=== PATIENT | female | born 1970 | race Caucasian/White ===

== ENCOUNTER → 2021-09-30 11:44 | Outpatient (CLI) | payer MEDICAID, SELFPAY | PROVIDERS: Visit Provider Obstetrics & Gynecology | DX: N76.0 Acute vaginitis (principal) ==

== ENCOUNTER 2021-12-11 11:13 | Outpatient (CLI) | payer MEDICAID, SELFPAY ==
[2021-12-11 11:47] LABS: Erythrocyte Sedimentation Rate < 1 mm/hr (0-30)
[2021-12-11 11:49] LABS: Absolute Lymphocyte Count 1.34 X10^3/uL (0.83-4.51); Absolute Neutrophil Count 4.9 X10^3/uL (2.0-7.7); Basophil# 0.04 X10^3/uL; Basophil% 0.5 % (0-1); Eosinophil# 0.43 X10^3/uL; Eosinophils% 5.9 % (0-5); Hematocrit 39.9 % (37-47); Hemoglobin 14.1 g/dL (12.0-15.0); Lymphocyte # 1.34 X10^3/ul (0.83-4.51); Lymphocyte % 18.3 % (19-41); Mean Corp Hgb Conc 35.3 g/dL (32-36); Mean Corpuscular Hgb 30.8 pg (27.0-32.0); Mean Corpuscular Volume 87.1 fL (81-99); Mean Platelet Vol. 10.4 fl (6.2-12.0); Monocyte# 0.62 X10^3/uL; Monocyte% 8.4 % (0-10); NRBC Flagged by Analyzer 0 % (0-5); Neutrophil # 4.88 X10^3/uL (2.7-7.7); Neutrophil % 66.5 % (47-70); Platelet Count 239 K/mm3 (150-450); RBC Distribution Width CV 13.2 % (11.6-14.6); RBC Distribution Width SD 41.6 fl (35.1-43.9); Red Blood Count 4.58 M/mm3 (4.2-5.4); White Blood Count 7.3 K/mm3 (4.4-11.0)
[2021-12-11 12:13] LABS: ALB/GLOB Ratio 1.1 RATIO (0.9-2.4); AST(SGOT) 11 U/L (15-37); Alanine Aminotransfer ALT/SGPT 19 U/L (13-56); Albumin, Serum 3.5 g/dL (3.2-5.0); Alkaline Phosphatase 71 U/L (45-117); Anion Gap 3 (5-15); BUN 10 mg/dL (7-18); BUN/Creat Ratio 15.7 RATIO (10-20); Calcium,Total 8.5 mg/dL (8.5-10.1); Chloride 106 mmol/L (98-107); Creatinine, Serum 0.64 mg/dL (0.55-1.02); EST Glomerular Filtration Rate 106 mL/min (>60); Est Glom Filt Rate - Afr Amer 128 mL/min (>60); Globulin 3.3 g/dL (2.2-4.2); Glucose 79 mg/dL (74-106); LDH 166 U/L (84-246); Protein, Total 6.8 g/dL (6.4-8.2); Sodium Level 139 mmol/L (136-145)
[2021-12-17 16:10] LABS: Cytoplasmic Ab (C-ANCA) <1:20 titer (Neg:<1:20); Endomysial Antibody IgA Negative (Negative); Immunoglobulin A 149 mg/dL (87-352); Immunoglobulin E 45 IU/mL (6-495); Immunoglobulin G 878 mg/dL (586-1602)
[2021-12-17 17:41] LABS: Immunoglobulin M 63 mg/dL (26-217); Perinuclear Ab (P-ANCA) <1:20 titer (Neg:<1:20); t-Transglutaminase IgA <2 U/mL (0-3)
== END 2021-12-11 23:59 | disposition home or self-care (01) ==
PROVIDERS: PCP Family Medicine; Referring Provider Internal Medicine Gastroenterology; Visit Provider Internal Medicine Gastroenterology
DX: R10.9 Unspecified abdominal pain (principal)
CPT/HCPCS: 36415; 80053; 82784; 82785; 83516; 83615; 85025; 85652; 86140; 86255; 86256

== ENCOUNTER 2022-01-15 09:17 | Outpatient (CLI) | payer MEDICAID, SELFPAY ==
--- NOTE | 2022-01-15 09:20 | US_ITS ---
STUDY: ABDOMINAL ULTRASOUND - RIGHT UPPER QUADRANT REASON FOR VISIT: Female, 51 years old right upper quadrant pain, fever TECHNIQUE: Ultrasound evaluation of the right upper quadrant was performed with real-time and static milner-scale imaging. TECHNICAL QUALITY: Adequate. COMPARISON: None. FINDINGS: Liver: The liver measures 16.4 cm. There is normal echogenicity of the liver. The bile ducts are within normal limits. There is hepatic color flow. The direction of portal flow is hepatopetal. There is no demonstrated mass lesion. Gallbladder: The patient is status post cholecystectomy. Common Bile Duct (C.B.D.): The common bile duct measures 5 mm. Pancreas: Normal size of the head, body and tail of the pancreas. There is normal echogenicity of the pancreas. There is no demonstrated pancreatic mass or cyst. Right Kidney: Normal size of the right kidney. The right kidney measures 10.1 x 4.8 x 4.1 cm. Normal renal cortex. The right cortex measures 1.5 cm. There is no demonstrated renal mass or cyst. There is no right hydronephrosis. US/Abdomen Limited IMPRESSION: No suspicious sonographic findings Electronically Signed: Vance Vasquez MD at 16:51 EDT ,
--- NOTE | 2022-01-15 09:20 | RAD_ITS ---
STUDY: X-RAY - ABDOMEN/PELVIS REASON FOR EXAM: Female, 51 years old. abdominal pain TECHNIQUE: Two AP supine views of the abdomen and pelvis. COMPARISON: None. FINDINGS: Normal visualized lung bases. There is an unremarkable bowel gas pattern. There is no demonstrated free abdominal air. The visualized liver, spleen and kidneys are grossly normal in size and morphology. Normal soft tissue structures. Normal visualized osseous structures. Evidence of previous tubal ligation RAD/Abdomen Single View IMPRESSION: No acute findings Electronically Signed: Vance Vasquez MD at 10:31 EDT ,
== END 2022-01-15 23:59 | disposition home or self-care (01) ==
PROVIDERS: PCP Family Medicine; Referring Provider Internal Medicine Gastroenterology; Visit Provider Internal Medicine Gastroenterology
DX: R10.9 Unspecified abdominal pain (principal)
CPT/HCPCS: 74018; 76705

== ENCOUNTER 2022-02-03 08:31 | Day surgery (SDC) | payer MEDICAID, SELFPAY ==
[2022-02-03] VITALS (7 sets, daily range): BP systolic 103–140; BP diastolic 48–67; PULSE 62–92; RESP 16–18; TEMP 36.2–36.7; O2SAT 93–100; BMI 37.4
--- NOTE | 2022-02-03 | GASB_PTH ---
PATIENT: LOVE SY LOC: EN U#:[id number] AGE/SX: 51/F ROOM: RE02/03/[address]: Dr. Ean Villa DO : 1970 BED: DIS: 02/03/2022 SPEC #: [id number] RECD: 02/03/22 12:02 STATUS: MANJULA CELI #: [id number] CHARI: 02/03/22 00:[address]: Ean Villa DEPT: SURGICAL PATHOLOGY RECD BY: Tan Reyes ENTERED: 02/03/22 12:03 SP TYPE: Gastric Bx OTHR DR: Dr. Navid Keating DO Tissues: A - Gastric mucous membrane B - Esophageal mucous membrane C - Ileum, NOS D - Cecum, NOS E - Rectum, NOS Procedures: Special Stain Group II Surgery Specimen Level IV Alcian Blue/PAS (control) HEADER OPERATION: Colonoscopy, EGD (MAC), biopsy PRE-OP DIAGNOSIS: Abdominal pain TISSUE SUBMITTED: A - Gastric antrum biopsy, B - Distal esophagus biopsy, C - Terminal ileum biopsy, D - Cecum biopsy, E - Rectum biopsy MICROSCOPIC DIAGNOSIS A. Gastric antrum, biopsy: Mild gastritis. See microscopic description and comment. B. Distal esophagus, biopsy: Fragments of gastroesophageal mucosa with intestinal metaplasia (goblet cell metaplasia) consistent with Yanez?s esophagus. Chronic inflammation. Negative for dysplasia. See comment. C. Terminal ileum, biopsy: Fragments of small intestinal mucosa, no pathologic diagnosis. D. Cecum, biopsy: Fragments of colonic mucosa, no pathologic diagnosis. E. Rectum, biopsy: A fragment of colonic mucosa, no pathologic diagnosis. SJ:rg 02/04/2022 COMMENT A. The results of immunohistochemistry for Helicobacter pylori will be reported separately ([id number]). B. Immunohistochemistry ([id number]) for P53 and Ki-67 will be performed and results will be reported separately. Alcian blue/PAS stain with matched control is used in the evaluation of the specimen. MICROSCOPIC DESCRIPTION Slides are reviewed. A. The specimen shows fragments of gastric mucosa with chronic inflammatory cell infiltrates in the lamina propria consisting of lymphocytes and plasma cells, consistent with mild chronic gastritis. GROSS DESCRIPTION A - Received in fixative is one container labeled with the patient's name and designated gastric antrum. The specimen consists of two irregular fragments of light hoover soft tissue that in aggregate measure 1 x 0.5 x 0.1 cm. The specimen is totally submitted in one cassette. B - Received in fixative is one container labeled with the patient's name and designated distal esophagus biopsy. The specimen consists of multiple irregular fragments of light hoover soft tissue that in aggregate measure 1 x 0.6 x 0.1 cm. The specimen is totally submitted in one cassette. C - Received in fixative is one container labeled with the patient's name and designated terminal ileum biopsy. The specimen consists of two irregular fragments of light hooevr soft tissue that in aggregate measure 0.6 x 0.3 x 0.1 cm. The specimen is totally submitted in one cassette. D - Received in fixative is one container labeled with the patient's name and designated cecum biopsy. The specimen consists of multiple irregular fragments of light hoover soft tissue that in aggregate measure 0.5 x 0.5 x 0.1 cm. The specimen is totally submitted in one cassette. E - Received in fixative is one container labeled with the patient's name and designated rectum. The specimen consists of one irregular fragment of light hoover soft tissue that measures 0.5 x 0.2 x 0.1 cm. The specimen is totally submitted in one cassette. / AM:cristina 02/03/2022 TC:3 CPT: 66433 x5, 59794
[2022-02-03] MEDS: Lactated Ringers 1,000 ML 15 ML IV (09:22)
--- NOTE | 2022-02-03 10:00 | IMM_PTH ---
PATIENT: LOVE SY LOC: EN U#:[id number] AGE/SX: 51/F ROOM: RE02/03/[address]: Dr. Ean Villa DO : 1970 BED: DIS: 02/03/2022 SPEC #: [id number] RECD: 02/03/22 13:07 STATUS: MANJULA REMike #: [id number] CHARI: 02/03/22 10:[address]: Ena Villa DEPT: IMMUNOHISTOCHEMISTRY RECD BY: Joaquina Jesus ENTERED: 02/03/22 13:07 SP TYPE: IMMUNO OTHR DR: Dr. Navid Keating DO Tissues: A - Stomach, NOS B - Esophagus, NOS Procedures: H Pylori (initial) P53 (initial) KI-67 (add) PHYSICIAN & INSTITUTION [facility] [id number] SPECIMEN INFORMATION: Tissue Source: A ? Gastric antrum biopsy, B ? Distal esophagus biopsy Clinical Info: Abdominal pain Specimen Number: [id number] A & B CPT code: 69770 x2, 50804 METHODOLOGY: Deparaffinized sections of prefer/formalin-fixed tissue or PAP/DQ stained slides are incubated with monoclonal/polyclonal antibodies/oligonucleotide probes. Localization is made via biotin free immunoperoxidase method. Appropriate controls are performed and reacted as expected. Results on target cell population are indicated in the following table: RESULTS: ANTIBODY / CLONE RESULT Block A H Pylori (polyclonal) negative Block B P53 (DO-7) negative Ki-67 (30-9) positive, very low These tests were developed and their performance characteristics determined by [facility]. They may not have been cleared or approved by the U.S. Food and Drug Administration. The FDA has determined that such clearance or approval is not necessary. The above immunohistochemical/dualISH markers are ordered and reviewed by the Pathologist. INTERPRETATION: A. Gastric antrum, biopsy: Negative for Helicobacter pylori organisms. B. Distal esophagus, biopsy: Negative for hyperplasia. SJ:cristina 02/05/2022
--- NOTE | 2022-02-03 10:25 | HP.PCM_ITS ---
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 For the last several months, saw computer forensics technician who performed an ultrasound and felt it was related to GI symptoms. Started antibiotic and pains continue. Reports difficulty with constipation alternating urgent diarrhea for the last couple of months. Reports blood she feels is related to hemorrhoids and an abnormal white discharge. History of migraine headaches that cause nausea and emesis, reports at one point she had difficulty with emesis becoming brown. Surgical history includes cholecystectomy 2003. Family history of Crohn?s disease, pancreatitis. ROS Const Constitutional: No anorexia, fatigue, fever(s), weight change or sleep problems Eyes Eyes: No change in vision ENT ENT: No abnormal hearing, difficulty swallowing, mouth lesions, tongue swelling or throat swelling Resp Respiratory: No cough or shortness of breath Cardio Cardiology: No chest pain at rest, chest pain with exertion, shortness of breath or dyspnea on exertion Gastro GI: No difficulty swallowing Genitourinary-Female: No difficulty urinating or burning urination Musc Musculoskeletal: No joint pain, joint swelling, muscle weakness or decreased muscle mass Skin Skin: No hair loss in leg, yellowing of the eye, itchy eyes, rash, skin ulcer or skin swelling Neuro Neurology: No abnormal hearing, abnormal movements, confusion, unsteady gait/balance or memory loss Psych Psychiatric: No anxiety, No confusion and No memory loss Endo Endocrine: No fatigue or weight change Aller/Imm Allergy/Immunologic: No itchy eyes, throat swelling or tongue swelling Maco/Lymp Hematologic/Lymphatic: No easy bleeding, easy bruising or enlarged lymph nodes Exam Const General: cooperative and comfortable Nutritional Appearance: average body habitus and well nourished [facility] Head: normal to inspection Ears: hearing grossly normal bilaterally Nose: external nose normal Face and sinus: normal facial exam Mouth: oral mucosae normal Throat: posterior oropharynx normal Eyes General: appearance normal, both eyes and all related structures Neck Neck: normal visual inspection Chest Chest palpation & inspection: normal inspection of the chest and normal palpation of entire chest wall Resp Effort & Inspection: normal respiratory effort Auscultation: Bilateral: Clear to Auscultation Cardio Palpation: normal PMI Rate: regular rate Rhythm: regular rhythm GI Inspection: normal to inspection Auscultation: normal bowel sounds Percussion: normal to percussion Palpation: no hepatosplenomegaly Skin General: no rashes or lesions noted Neuro General: patient alert Extrem General: normal to inspection Psych Affect: normal affect Quality Reporting Tobacco Screening ([facility] 138) Smoking Status: Former smoker Assessment and Plan Assessment and Plan (1) Abdominal pain: Status: Acute Orders: Orders: Abdomen/Pelvis WITH Contrast 12/11/21 Comprehensive Metabolic Profil 12/11/21 CRP 12/11/21 LDH 12/11/21 CBC W/Diff, Automated 12/11/21 Erythrocyte Sed Rate 12/11/21 ANCA 12/11/21 Celiac Disease Profile 12/11/21 Immunoglobulin E 12/11/21 Immunoglobulin G 12/11/21 Immunoglobulin M 12/11/21 Plan - Dr. Mckoy Friend, DO: Differential diagnosis for abdominal pain does include IBS with constipation, intestinal angina, peptic ulcer disease, sigmoid colitis associated with diverticulosis. She will undergo an upper and lower endoscopy and also a biochemical work-up. Prior to that she will undergo CT scan abdomen pelvis. This was over 35 minutes explaining the possible differential diagnosis that she was okay with the plan. I have re-examined the patient. There are no clinical changes since date of exam.
--- NOTE | 2022-02-03 11:23 | OP.EGD_ITS ---
Patient Name: Anette Ruvalcaba Procedure Date: 02/03/2022 10:33 AM Date of : 1970 Age: 51 Procedure: Upper GI endoscopy Indications: Epigastric abdominal pain Providers: Ean Villa DO Medicines: See the Anesthesia note for documentation of the administered medications Patient Profile: This is a 51 year old female. Refer to note in patient chart for documentation of history and physical. Patient has symptoms of acute epigastric abdominal pain and chronic nausea. Complications: No immediate complications. Procedure: Pre-Anesthesia Assessment: - Prior to the procedure, a History and Physical was performed, and patient medications and allergies were reviewed. The patient is competent. The risks and benefits of the procedure and the sedation options and risks were discussed with the patient. All questions were answered and informed consent was obtained. Patient identification and proposed procedure were verified by the physician in the pre-procedure area. Mental Status Examination: alert and oriented. Airway Examination: normal oropharyngeal airway and neck mobility. Respiratory Examination: clear to auscultation. CV Examination: normal. Prophylactic Antibiotics: The patient does not require prophylactic antibiotics. Prior Anticoagulants: The patient has taken no previous anticoagulant or antiplatelet agents. ASA Grade Assessment: II - A patient with mild systemic disease. After reviewing the risks and benefits, the patient was deemed in satisfactory condition to undergo the procedure. The anesthesia plan was to use moderate sedation / analgesia (conscious sedation). Immediately prior to administration of medications, the patient was re-assessed for adequacy to receive sedatives. The heart rate, respiratory rate, oxygen saturations, blood pressure, adequacy of pulmonary ventilation, and response to care were monitored throughout the procedure. The physical status of the patient was re-assessed after the procedure. After obtaining informed consent, the endoscope was passed under direct vision. Throughout the procedure, the patient's blood pressure, pulse, and oxygen saturations were monitored continuously. The pediatric colonoscope was introduced through the mouth, and advanced to the second part of duodenum. The upper GI endoscopy was accomplished without difficulty. The patient tolerated the procedure well. Moderate Sedation: Moderate (conscious) sedation was administered by the endoscopy nurse and supervised by the endoscopist. The patient's oxygen saturation, heart rate, blood pressure and response to care were monitored. Total physician intraservice time was 15 minutes. Scope In: 10:48:00 AM Scope Out: 10:53:33 AM Total Procedure Duration Time 0 hours 5 minutes 33 seconds Findings: LA Grade B (one or more mucosal breaks greater than 5 mm, not extending between the tops of two mucosal folds) esophagitis with no bleeding was found 37 to 40 cm from the incisors. Biopsies were taken with a cold forceps for histology. Verification of patient identification for the specimen was done. Estimated blood loss was minimal. A medium-sized hiatal hernia was present. Patchy mildly erythematous mucosa without bleeding was found in the stomach. The first portion of the duodenum was normal. Impression: - LA Grade B reflux esophagitis. Biopsied. - Medium-sized hiatal hernia. - Erythematous mucosa in the stomach. - Normal first portion of the duodenum. Recommendation: - Discharge patient to home. - Resume previous diet. - Continue present medications. - Use Protonix (pantoprazole) 40 mg PO BID for 8 weeks. -Cholestyramine 4 g nightly Procedure Code(s): --- Professional --- 64928, Esophagogastroduodenoscopy, flexible, transoral; with biopsy, single or multiple 58905, 59, Moderate sedation services provided by the same physician or other qualified health customer care coordinator performing the diagnostic or therapeutic service that the sedation supports, requiring the presence of an independent trained observer to assist in the monitoring of the patient's level of consciousness and physiological status; initial 15 minutes of intraservice time, patient age 5 years or older CPT copyright 2017 [employer]. All rights reserved. The codes documented in this report are preliminary and upon medical biller/coder review may be revised to meet current compliance requirements. Ean Villa DO 02/03/2022 11:23:19 AM This report has been signed electronically. Number of Addenda: 1 Note Initiated On: 02/03/2022 10:33 AM Addendum Number: 1 Addendum Date: 07/29/2022 6:47:12 AM MAC was used as sedation for this procedure. Ean Villa DO 07/29/2022 6:47:17 AM This report has been signed electronically.
--- NOTE | 2022-02-03 11:24 | OP.CCLET_ITS ---
07/29/2022 Navid Keating Do Re : Upper GI endoscopy procedure for Anette Ruvalcaba Dear Dr. Keating This procedure was performed on Thursday, February 03, 2022. My impressions and recommendations are as follows: Impressions : - LA Grade B reflux esophagitis. Biopsied. - Medium-sized hiatal hernia. - Erythematous mucosa in the stomach. - Normal first portion of the duodenum. Recommendations : - Discharge patient to home. - Resume previous diet. - Continue present medications. - Use Protonix (pantoprazole) 40 mg PO BID for 8 weeks. -Cholestyramine 4 g nightly My findings are described in the full procedure note, which is enclosed. If I can be of further assistance, please feel free to contact me at . Sincerely, Ean Friend, 02/03/2022 11:23:19 AM This report has been signed electronically.
--- NOTE | 2022-02-03 12:18 | OP.COLON_ITS ---
Patient Name: Anette Ruvalcaba Procedure Date: 02/03/2022 10:54 AM Date of : 1970 Age: 51 Procedure: Colonoscopy Indications: Screening for colorectal malignant neoplasm Providers: Ean Villa DO Medicines: See the Anesthesia note for documentation of the administered medications Patient Profile: This is a 51 year old female. Refer to note in patient chart for documentation of history and physical. Patient has symptoms of acute epigastric abdominal pain and chronic nausea. Last Colonoscopy: none. The patient's first colonoscopy is today. Complications: No immediate complications. Procedure: Pre-Anesthesia Assessment: - Prior to the procedure, a History and Physical was performed, and patient medications and allergies were reviewed. The patient is competent. The risks and benefits of the procedure and the sedation options and risks were discussed with the patient. All questions were answered and informed consent was obtained. Patient identification and proposed procedure were verified by the physician in the pre-procedure area. Mental Status Examination: alert and oriented. Airway Examination: normal oropharyngeal airway and neck mobility. Respiratory Examination: clear to auscultation. CV Examination: normal. Prophylactic Antibiotics: The patient does not require prophylactic antibiotics. Prior Anticoagulants: The patient has taken no previous anticoagulant or antiplatelet agents. ASA Grade Assessment: II - A patient with mild systemic disease. After reviewing the risks and benefits, the patient was deemed in satisfactory condition to undergo the procedure. The anesthesia plan was to use moderate sedation / analgesia (conscious sedation). Immediately prior to administration of medications, the patient was re-assessed for adequacy to receive sedatives. The heart rate, respiratory rate, oxygen saturations, blood pressure, adequacy of pulmonary ventilation, and response to care were monitored throughout the procedure. The physical status of the patient was re-assessed after the procedure. After I obtained informed consent, the scope was passed under direct vision. Throughout the procedure, the patient's blood pressure, pulse, and oxygen saturations were monitored continuously. The pediatric colonoscope was introduced through the anus and advanced to the cecum, identified by the appendiceal orifice, ileocecal valve and palpation. The colonoscopy was performed without difficulty. The patient tolerated the procedure well. The quality of the bowel preparation was good. Moderate Sedation: Moderate (conscious) sedation was administered by the endoscopy nurse and supervised by the endoscopist. The patient's oxygen saturation, heart rate, blood pressure and response to care were monitored. Total physician intraservice time was 15 minutes. Scope In: 10:57:32 AM Scope Withdrawal Time 0 hours 13 minutes 29 seconds Scope Out: 11:15:57 AM Total Procedure Duration Time 0 hours 18 minutes 25 seconds Findings: The perianal and digital rectal examinations were normal. A few small-mouthed diverticula were found in the sigmoid colon. An area of mildly congested mucosa was found in the cecum. Biopsies were taken with a cold forceps for histology. Verification of patient identification for the specimen was done. Estimated blood loss was minimal. The terminal ileum appeared normal. Biopsies were taken with a cold forceps for histology. Verification of patient identification for the specimen was done. Estimated blood loss was minimal. There was also mild proctitis seen in the rectum. Biopsies were taken. Impression: - Diverticulosis in the sigmoid colon. - Congested mucosa in the cecum. Biopsied. - The examined portion of the ileum was normal. Biopsied. - Proctitis was seen in the rectum Recommendation: - Written discharge instructions were provided to the patient. - The signs and symptoms of potential delayed complications were discussed with the patient. - Patient has a contact number available for emergencies. - Return to normal activities tomorrow. - Resume previous diet. - Continue present medications. - Await pathology results. - Repeat colonoscopy in 5 years for surveillance. Procedure Code(s): --- Professional --- 42782, Colonoscopy, flexible; with biopsy, single or multiple 99339, 59, Moderate sedation services provided by the same physician or other qualified health manager care performing the diagnostic or therapeutic service that the sedation supports, requiring the presence of an independent trained observer to assist in the monitoring of the patient's level of consciousness and physiological status; initial 15 minutes of intraservice time, patient age 5 years or older CPT copyright 2017 [employer]. All rights reserved. The codes documented in this report are preliminary and upon cuff matcher review may be revised to meet current compliance requirements. Ean Villa DO 02/03/2022 12:18:13 PM This report has been signed electronically. Number of Addenda: 1 Note Initiated On: 02/03/2022 10:54 AM Addendum Number: 1 Addendum Date: 07/29/2022 6:47:24 AM MAC was used as sedation for this procedure. Ean Villa DO 07/29/2022 6:47:31 AM This report has been signed electronically.
--- NOTE | 2022-02-03 12:19 | OP.CCLET_ITS ---
07/29/2022 Navid Keating Do Re : Colonoscopy procedure for Anette Ruvalcaba Dear Dr. Keating This procedure was performed on Thursday, February 03, 2022. My impressions and recommendations are as follows: Impressions : - Diverticulosis in the sigmoid colon. - Congested mucosa in the cecum. Biopsied. - The examined portion of the ileum was normal. Biopsied. - Proctitis was seen in the rectum Recommendations : - Written discharge instructions were provided to the patient. - The signs and symptoms of potential delayed complications were discussed with the patient. - Patient has a contact number available for emergencies. - Return to normal activities tomorrow. - Resume previous diet. - Continue present medications. - Await pathology results. - Repeat colonoscopy in 5 years for surveillance. My findings are described in the full procedure note, which is enclosed. If I can be of further assistance, please feel free to contact me at . Sincerely, Ean Villa, 02/03/2022 12:18:13 PM This report has been signed electronically.
== END 2022-02-03 23:59 | disposition home or self-care (01) ==
LOC: EN 08:33 → AC 08:34
PROVIDERS: PCP Family Medicine; Referring Provider Family Medicine; Visit Provider Internal Medicine Gastroenterology
PROC: 0DJD8ZZ Inspection of Lower Intestinal Tract, Via Natural or Artificial Opening Endoscopic (ICD-10-PCS; CPT 45378; principal; 2022-02-03 09:55)
DX: K22.70 Barrett's esophagus without dysplasia (principal); K21.00 Gastro-esophageal reflux disease with esophagitis, without bleeding; K57.30 Diverticulosis of large intestine without perforation or abscess without bleeding; K44.9 Diaphragmatic hernia without obstruction or gangrene; K31.89 Other diseases of stomach and duodenum; K29.50 Unspecified chronic gastritis without bleeding; J45.909 Unspecified asthma, uncomplicated; F41.9 Anxiety disorder, unspecified; Z87.891 Personal history of nicotine dependence; Z79.899 Other long term (current) drug therapy
CPT/HCPCS: 45380; 43239; 87426; 88305; 88313; 88341; 88342; J7120; J2405

== ENCOUNTER → 2022-02-19 | Outpatient (CLI) | payer MEDICAID, SELFPAY ==
[2022-02-19 11:37] LABS: LDH 181 U/L (84-246)
[2022-02-20 02:15] LABS: Erythrocyte Sedimentation Rate < 1 mm/hr (0-30)
[2022-02-22 16:09] LABS: Anti-Centromere B Ab <0.2 AI (0.0-0.9); Anti-Chromatin <0.2 AI (0.0-0.9); Anti-Jo <0.2 AI (0.0-0.9); Anti-Scleroderma-70 AB 0.2 AI (0.0-0.9); RNP Ab <0.2 AI (0.0-0.9); SJOGREN'S Anti-SS-A test < 0.2 AI (0.0-0.9); SJOGREN'S Anti-SS-B test < 0.2 AI (0.0-0.9); Smith Ab <0.2 AI (0.0-0.9)
[2022-02-22 17:02] LABS: Anti-dsDNA Ab 1 IU/mL (0-9)
[2022-02-23 19:57] LABS: Calprotectin, Stool 53 ug/g (0-120)
[2022-02-28 01:06] LABS: Albumin 3.7 g/dL (2.9-4.4); Alpha-1-Globulins 0.3 g/dL (0.0-0.4); Alpha-2-Globulins 0.6 g/dL (0.4-1.0); Cytoplasmic Ab (C-ANCA) <1:20 titer (Neg:<1:20); Endomysial Antibody IgA Negative (Negative); Gamma Globulin 0.9 g/dL (0.4-1.8); Immunoglobulin A 153 mg/dL (87-352); Immunoglobulin E 43 IU/mL (6-495); Immunoglobulin G 909 mg/dL (586-1602); Immunoglobulin M 59 mg/dL (26-217); PROEL- TOTAL PROTEIN 6.4 g/dL (6.0-8.5)
[2022-02-28 10:30] LABS: Perinuclear Ab (P-ANCA) <1:20 titer (Neg:<1:20); t-Transglutaminase IgA <2 U/mL (0-3)
== END | disposition home or self-care (01) ==
LOC: LAB 10:11
PROVIDERS: PCP Family Medicine; Referring Provider Internal Medicine Gastroenterology; Visit Provider Internal Medicine Gastroenterology
DX: R10.9 Unspecified abdominal pain (principal)
CPT/HCPCS: 36415; 82784; 82785; 83516; 83615; 83630; 83993; 84165; 85652; 86140; 86225; 86235; 86255; 86256; 86334

== ENCOUNTER → 2022-08-06 | Outpatient (CLI) | payer MEDICAID, SELFPAY ==
--- NOTE | 2022-08-06 10:57 | RAD_ITS ---
STUDY: X-RAY - ABDOMEN/PELVIS REASON FOR EXAM: Female, 51 years old. .Normal pain. Constipation. Cramping and nausea. TECHNIQUE: Two AP supine views of the abdomen and pelvis. COMPARISON: 01/15/2022. FINDINGS: Normal visualized lung bases. There is an unremarkable bowel gas pattern. Air is seen throughout nondistended colon. No small bowel dilatation. There is no demonstrated free abdominal air. The visualized liver, spleen and kidneys are grossly normal in size and morphology. Cholecystectomy clips right upper quadrant. Tubal ligation clips are again seen pelvis. No osseous changes. RAD/Abdomen Single View IMPRESSION: No evidence of acute intra-abdominal or pelvic process. Electronically Signed: Moses Bermudez DO at 21:44 EDT ,
== END | disposition home or self-care (01) ==
LOC: RAD 10:56
PROVIDERS: Referring Provider Nurse Practitioner Adult Health; Visit Provider Nurse Practitioner Adult Health
DX: R10.9 Unspecified abdominal pain (principal); K59.00 Constipation, unspecified
CPT/HCPCS: 74018

== ENCOUNTER 2023-02-02 05:06 | Day surgery (SDC) | payer MEDICAID, SELFPAY ==
[2023-02-02] VITALS (7 sets, daily range): BP systolic 99–112; BP diastolic 49–77; PULSE 58–74; RESP 16–20; TEMP 36.1–37; O2SAT 94–100; BMI 37.0
--- NOTE | 2023-02-02 | ESO_PTH ---
PATIENT: LOVE YS LOC: EN U#:[id number] AGE/SX: 52/F ROOM: RE02/02/[address]: Dr. Ean Villa DO : 1970 BED: DIS: 02/02/2023 SPEC #: [id number] RECD: 02/02/23 10:33 STATUS: MANJULA CELI #: [id number] CHARI: 02/02/23 00:[address]: Ean Villa DEPT: SURGICAL PATHOLOGY RECD BY: Tan Reyes ENTERED: 02/02/23 10:33 SP TYPE: LILIA GARCIA DR: No Primary Care Phys Tissues: Esophagus, NOS Procedures: Special Stain Group II Surgery Specimen Level IV Alcian Blue/PAS (control) HEADER OPERATION: EGD ([facility]), biopsy PRE-OP DIAGNOSIS: Constipation, Yanez?s esophagus, GERD TISSUE SUBMITTED: Distal esophagus biopsy MICROSCOPIC DIAGNOSIS Distal esophagus, biopsy: Fragments of gastroesophageal mucosa with focal intestinal metaplasia (goblet cell metaplasia), consistent with Yanez's esophagus. Moderate chronic inflammation and changes consistent with gastroesophageal reflux disease. Negative for dysplasia. See comment. KEAGAN:cristina 02/03/2023 COMMENT Immunohistochemistry ([id number]) for P53 and Ki-67 will be performed and results will be reported separately. Alcian blue/PAS stain with matched control is used in the evaluation of the specimen. MICROSCOPIC DESCRIPTION Slides are reviewed. GROSS DESCRIPTION Received in fixative is one container labeled with the patient's name and designated distal esophagus. The specimen consists of multiple irregular fragments of light hoover soft tissue that in aggregate measure 1.0 x 0.5 x 0.1 cm. The specimen is totally submitted in one cassette. / AM:cristina 02/02/2023 TC:5 CPT: 05998, 60467
--- NOTE | 2023-02-02 | IMM_PTH ---
PATIENT: LOVE SY LOC: EN U#:[id number] AGE/SX: 52/F ROOM: RE02/02/[address]: Dr. Ean Villa DO : 1970 BED: DIS: 02/02/2023 SPEC #: [id number] RECD: 02/03/23 13:31 STATUS: MANJULA REMike #: [id number] CHARI: 02/02/23 00:[address]: Ean Villa DEPT: IMMUNOHISTOCHEMISTRY RECD BY: Joaquina Jesus ENTERED: 02/03/23 13:31 SP TYPE: IMMUNO OTHR DR: No Primary Care Phys Tissues: Esophagus, NOS Procedures: P53 (initial) KI-67 (add) PHYSICIAN & INSTITUTION [place] [id number] SPECIMEN INFORMATION: Tissue Source: Distal esophagus biopsy Clinical Info: Constipation, Yanez?s esophagus, GERD Specimen Number: [id number] CPT code: 20875, 74984 METHODOLOGY: Deparaffinized sections of prefer/formalin-fixed tissue or PAP/DQ stained slides are incubated with monoclonal/polyclonal antibodies/oligonucleotide probes. Localization is made via biotin free immunoperoxidase method. Appropriate controls are performed and reacted as expected. Results on target cell population are indicated in the following table: RESULTS: ANTIBODY / CLONE RESULT P53 (DO-7) negative (Null pattern) Ki-67 (30-9) positive, very low These tests were developed and their performance characteristics determined by [facility]. They may not have been cleared or approved by the U.S. Food and Drug Administration. The FDA has determined that such clearance or approval is not necessary. The above immunohistochemical/dualISH markers are ordered and reviewed by the Pathologist. INTERPRETATION: Distal esophagus, biopsy: Negative for dysplasia. KEAGAN:cristina 02/04/2023
[2023-02-02] MEDS: Lactated Ringers 1,000 ML 15 ML IV (06:04)
--- NOTE | 2023-02-02 06:32 | HP.PCM_ITS ---
History and Physical Date of Admission: 02/02/23 52 F who presents to the office today for f/u constipation, GERD, Yanez's. At her last visit in 07/2022 she had stopped Linzess because she felt better, so she was again suffering with constipation, abd pain, increased acid reflux. We had her resume Linzess 290 mcg QAM, and continue BID dosing of pantoprazole since that was working better than once daily dosing for her reflux. Today she reports she remains on Linzess 290 mcg, she has a BM every 2-3 days, reports mucus in her stool. Right sided belly pain when constipated. Lots of gas and bloating in the evenings. No melena or hematochezia. Still having reflux intermittently. No nausea, vomiting, dysphagia.? Walks about 2 miles per day in order to get the bus, doesn't have transportation. Very stressed, increased anxiety, is homeless, living with her mother. Feeling very tired lately. CT scan 12.21.21 at [facility] found cholecystectomy clips present. Otherwise an unremarkable exam. US abd limited 01.15.22 found liver measurement 16.4cm with normal echogenicity, normal pancreas, normal renal system. EGD and colonoscopy performed 02.03.22. EGD found LA Grade B reflux esophagitis; esophageal changes consistent with Yanez?s without dysplasia, Ki-67 positive; medium hiatal hernia; erythematous stomach; gastritis. H. Pylori negative. Colonoscopy found diverticulosis in sigmoid colon; congested mucosa of cecum; proctitis in rectum. No pathologic changes. Exam Const General: cooperative, comfortable and anxious Nutritional Appearance: obese Orientation: alert, awake and oriented x3 Quality Reporting Tobacco Screening (CMS 138) Smoking Status: Former smoker Assessment and Plan Assessment and Plan (1) Constipation: ?Status:?Acute ?Plan: Very nice 52 yr old female with significant stressors (especially homelessness and lack of transportation). Constipation is better on Linzess 290 mcg daily but not fully treated, still with gas and bloat and reflux. Add miralax once daily, we'll call her in a couple of weeks to see how she is doing. Continue pantoprazole bid. Schedule one yr f/u EGD for 01/2023 to reeval Yanez's, f/u 2 wks later. (2) Yanez's esophagus: ?Status:?Acute ?Plan: Repeat EGD in January 2023 (3) GERD (gastroesophageal reflux disease): ?Status:?Acute ?Plan: I have examined the patient and the H&P has been reviewed. There are no clinical changes since date of exam.
--- NOTE | 2023-02-02 06:49 | OP.CCLET_ITS ---
02/02/2023 No Primary Care Physician Re : Upper GI endoscopy procedure for Anette Ruvalcaba Dear Care Physician This procedure was performed on Thursday, February 02, 2023. My impressions and recommendations are as follows: Impressions : - Esophageal mucosal changes secondary to established short-segment Yanez's disease. Biopsied. - Small hiatal hernia. - Normal second portion of the duodenum. Recommendations : - Discharge patient to home. - Resume previous diet. - Continue present medications. - Await pathology results. - Repeat upper endoscopy in 1 year for surveillance. My findings are described in the full procedure note, which is enclosed. If I can be of further assistance, please feel free to contact me at . Sincerely, Ean Villa, 02/02/2023 6:48:26 AM This report has been signed electronically.
--- NOTE | 2023-02-02 06:49 | OP.EGD_ITS ---
Patient Name: Anette Ruvalcaba Procedure Date: 02/02/2023 6:17 AM Date of : 1970 Age: 52 Procedure: Upper GI endoscopy Indications: Follow-up of Yanez's esophagus Providers: Ean Villa DO Referring MD: No Primary Care Physician Medicines: Monitored Anesthesia Care Patient Profile: This is a 52 year old female. Refer to note in patient chart for documentation of history and physical. Patient has symptoms of chronic heartburn. Complications: No immediate complications. Procedure: Pre-Anesthesia Assessment: - Prior to the procedure, a History and Physical was performed, and patient medications and allergies were reviewed. The patient is competent. The risks and benefits of the procedure and the sedation options and risks were discussed with the patient. All questions were answered and informed consent was obtained. Patient identification and proposed procedure were verified by the physician. Mental Status Examination: normal. Prophylactic Antibiotics: The patient does not require prophylactic antibiotics. Prior Anticoagulants: The patient has taken no previous anticoagulant or antiplatelet agents. After reviewing the risks and benefits, the patient was deemed in satisfactory condition to undergo the procedure. The anesthesia plan was to use monitored anesthesia care (MAC). Immediately prior to administration of medications, the patient was re-assessed for adequacy to receive sedatives. The heart rate, respiratory rate, oxygen saturations, blood pressure, adequacy of pulmonary ventilation, and response to care were monitored throughout the procedure. The physical status of the patient was re-assessed after the procedure. After obtaining informed consent, the endoscope was passed under direct vision. Throughout the procedure, the patient's blood pressure, pulse, and oxygen saturations were monitored continuously. The gastroscope was introduced through the mouth, and advanced to the second part of duodenum. The upper GI endoscopy was accomplished without difficulty. The patient tolerated the procedure well. Scope In: 6:40:20 AM Scope Out: 6:43:47 AM Total Procedure Duration Time 0 hours 3 minutes 27 seconds Findings: There were esophageal mucosal changes secondary to established short-segment Yanez's disease present in the lower third of the esophagus. The maximum longitudinal extent of these mucosal changes was 3 cm in length. Mucosa was biopsied with a cold forceps for histology in a targeted manner at intervals of 1 cm in the lower third of the esophagus. One specimen bottle was sent to pathology. Verification of patient identification for the specimen was done. Estimated blood loss was minimal. A small hiatal hernia was present. No other significant abnormalities were identified in a careful examination of the stomach. The second portion of the duodenum was normal. Impression: - Esophageal mucosal changes secondary to established short-segment Yanez's disease. Biopsied. - Small hiatal hernia. - Normal second portion of the duodenum. Recommendation: - Discharge patient to home. - Resume previous diet. - Continue present medications. - Await pathology results. - Repeat upper endoscopy in 1 year for surveillance. Procedure Code(s): --- Professional --- 08465, Esophagogastroduodenoscopy, flexible, transoral; with biopsy, single or multiple CPT copyright 2017 [employer]. All rights reserved. The codes documented in this report are preliminary and upon psychologist social review may be revised to meet current compliance requirements. Ean Villa DO 02/02/2023 6:48:26 AM This report has been signed electronically. Number of Addenda: 0 Note Initiated On: 02/02/2023 6:17 AM
== END 2023-02-02 07:39 | disposition home or self-care (01) ==
LOC: EN 05:08 → AC 05:11
PROVIDERS: Visit Provider Internal Medicine Gastroenterology
PROC: 0DJ08ZZ Inspection of Upper Intestinal Tract, Via Natural or Artificial Opening Endoscopic (ICD-10-PCS; CPT 43235; principal; 2023-02-02 06:25)
DX: K59.00 Constipation, unspecified (principal); K22.70 Barrett's esophagus without dysplasia; Z87.891 Personal history of nicotine dependence; K44.9 Diaphragmatic hernia without obstruction or gangrene; K21.9 Gastro-esophageal reflux disease without esophagitis
CPT/HCPCS: 43239; 88305; 88313; 88341; 88342; J7120; J2405

== ENCOUNTER → 2023-02-02 | Outpatient (CLI) | payer MEDICAID, SELFPAY ==
[2023-02-08 14:37] LABS: HPV APTIMA, High Risk Negative (Negative)
== END | disposition home or self-care (01) ==
PROVIDERS: Visit Provider Obstetrics & Gynecology
DX: Z12.4 Encounter for screening for malignant neoplasm of cervix (principal)
CPT/HCPCS: 87624; 88175; G0145

== ENCOUNTER → 2023-02-15 | Outpatient (CLI) | payer MEDICAID, SELFPAY ==
--- NOTE | 2023-02-15 10:02 | BI_ITS ---
MAMMOGRAPHY - BILATERAL SCREENING REASON FOR EXAM: Female, 52 years old. Routine annual screening examination. PERTINENT HISTORY: Non-contributory. TECHNIQUE: Digital bilateral breast su (3D mammographic acquisition) in the CC and MLO projections. 2-D mediolateral oblique (MLO) and craniocaudad (CC) views of both breasts were obtained. CAD: Full Field Digital Mammography with Computer Added Detection was performed. COMPARISON: Comparison is made with prior ultrasound examination dated December 14, 2021. FINDINGS: Breast Composition: The breasts are heterogeneously dense, which may obscure small masses. There are no dominant masses or suspicious calcifications. Stable scattered bilateral microcalcifications. No focal cluster is seen. Stable benign-appearing bilateral axillary nodes. No other significant abnormalities are identified. There has been no significant change since the prior study. BI/SCRN MAMM (CAD)W/SU BILAT IMPRESSION: Stable bilateral screening mammogram. Yearly follow-up mammogram recommended. (A) ASSESSMENT CATEGORY: BIRADS Category 2: Benign. A letter regarding these results will be sent to the patient by the facility within 30 days. Approximately 10% of breast cancers are not detected by mammography. A normal mammogram should not delay biopsy of a clinically suspicious abnormality. [id number] Electronically Signed: Duane Hernandes MD at 11:16 EDT ,
== END | disposition home or self-care (01) ==
LOC: OPBI 10:01
PROVIDERS: Referring Provider Obstetrics & Gynecology; Visit Provider Obstetrics & Gynecology
DX: Z12.31 Encounter for screening mammogram for malignant neoplasm of breast (principal)
CPT/HCPCS: 77063; 77067

== ENCOUNTER 2024-05-30 07:49 | Day surgery (SDC) | payer MEDICAID, SELFPAY ==
[2024-05-30] VITALS (7 sets, daily range): BP systolic 111–130; BP diastolic 62–75; PULSE 16–76; RESP 16; TEMP 36.2–36.6; O2SAT 98–100; BMI 40.8
--- NOTE | 2024-05-30 | ESO_PTH ---
PATIENT: LOVE SY LOC: EN U#:[id number] AGE/SX: 53/F ROOM: RE05/30/[address]: Dr. Ean Villa DO : 1970 BED: DIS: 05/30/2024 SPEC #: [id number] RECD: 05/30/24 13:10 STATUS: MANJULA CELI #: [id number] CHARI: 05/30/24 00:[address]: Ean Villa DEPT: SURGICAL PATHOLOGY RECD BY: Tan Reyes ENTERED: 05/30/24 13:10 SP TYPE: LILIA GARCIA DR: Nahed Primary Care Phys Tissues: Esophagus, NOS Procedures: Special Stain Group I Surgery Specimen Level IV Alcian Blue/PAS (control) HEADER OPERATION: EGD, biopsy PRE-OP DIAGNOSIS: Yaenz's esophagus, GERD, abdominal pain TISSUE SUBMITTED: Distal esophagus biopsy MICROSCOPIC DIAGNOSIS Distal esophagus, biopsy: Fragments of gastric mucosa with moderate chronic inflammation. Intestinal metaplasia (goblet cell metaplasia) not identified. See comment. KEAGAN/ 05/31/2024 COMMENT Alcian blue/PAS stain with matched control is used in the evaluation of the specimen. MICROSCOPIC DESCRIPTION Slides are reviewed. GROSS DESCRIPTION Received in fixative is one container labeled with the patient's name and designated Distal esophagus biopsy. The specimen consists of multiple irregular fragments of light hoover soft tissue that in aggregate measure 2.0 x 0.5 x 0.1 cm. The specimen is totally submitted in one cassette. REGIS/ 05/30/2024 TC:3 CPT:93156,19902
[2024-05-30] MEDS: Lactated Ringers 1,000 ML 15 ML IV (08:27)
--- NOTE | 2024-05-30 08:33 | PRE.ANES_ITS ---
ASA Classification* ASA Classification ASA Classification: 3 Assessment & Plan Anesthesia* Anesthesia Assessment Anesthesia Assessment: Discussed sedation and/or anesthesia options, risks, benefits, and alternatives with patient/parents/legal guardian/POA. Questions invited. The patient/parents/legal guardian/POA seems to understand and agrees to proceed with anesthesia plan. Reviewed the physical assessment, medical history, allergy history and patient home medications list prior to surgery/procedure/anesthetic and documented any changes. Performed airway and anesthesia risk assessments. Anesthesia Type Anesthesia Type: MAC Anesthesia Focused Assessment* Temperature: 97.8 F Pulse Rate: 60 Blood Pressure: 117/63 Respiratory Rate: 16 Pulse Ox: 100 Airway Assessment Mouth opens: >3 cm Mallampati Score: II Focused Labs Anesthesia Preop lab: CBC WBC 7.3 K/mm3 (4.4-11.0) 12/11/21 11:19 RBC 4.58 M/mm3 (4.2-5.4) 12/11/21 11:19 Hgb 14.1 g/dL (12.0-15.0) 12/11/21 11:19 Hct 39.9 % (37-47) 12/11/21 11:19 Plt Count 239 K/mm3 (150-450) 12/11/21 11:19 CHEMISTRY Potassium 4.0 mmol/L (3.5-5.1) 12/11/21 11:19 Sodium 139 mmol/L (136-145) 12/11/21 11:19 BUN 10 mg/dL (7-18) 12/11/21 11:19 Creatinine 0.64 mg/dL (0.55-1.02) 12/11/21 11:19 Glucose 79 mg/dL (74-106) 12/11/21 11:19 TSH 0.91 uIU/mL (0.358-3.74) 03/01/16 15:30 COAG PT 12.7 SECONDS (11.7-14.9) 03/01/16 15:30 Pre-Assessment Diagnosis/Proposed Procedure Planned Operative Procedure(s): EGD Anesthesia History Anesthesia History - healthcare economics manager: Anesthesia History - healthcare economics manager Hx Hospitalization No 05/28/24 15:01 Any Problems With Anesthesia Yes: SLOW TO AWAKEN 05/28/24 15:01 Cholinesterase deficiency No 05/28/24 15:01 You/Your Family Experience No 05/28/24 15:01 fever (hyperthermia) with Relationship Recent Exposure to Contagious No 05/30/24 08:24 Disease Does patient have nerve No 05/28/24 15:01 stimulator Patient instructed to have device shut off --Does patient have Pacemaker No 05/30/24 08:24 or ICD? When Was Last Pacemaker Check QUESTION #4 FULL TEXT: You/Your Family Experience fever (hyperthermia) with Anesthesia Last Oral Intake Last Oral intake: Last Oral Intake NPO since 21:00 05/30/24 08:24 Meds taken in AM with sips of No 05/30/24 08:24 water? Meds patient instructed to take am of surgery PONV PONV - healthcare economics manager: PONV - healthcare economics manager Female Yes 05/28/24 15:01 HX of Motion Sickness Yes 05/28/24 15:01 HX of N/V After Surgery Yes 05/28/24 15:01 Non-Smoker Yes 05/28/24 15:01 Duration of Surgery greater No 05/28/24 15:01 than 60 minutes Number of Risk Factors 4 05/28/24 15:01 PONV Score Severe Risk 05/28/24 15:01 Height & Weight Height & Weight: Anesthesia: Height & Weight Height 5 ft 05/30/24 08:24 Weight: 95 kg 05/30/24 08:24 Body Mass Index (BMI) 40.8 05/30/24 08:24 Respiratory Assessment Respiratory Assessment - healthcare economics manager: Respiratory Tract Infection Hx - healthcare economics manager Hx Respiratory Tract Infection No 05/28/24 15:01 STOP Sleep Apnea STOP Sleep Apnea - healthcare economics manager: STOP Sleep Apnea - healthcare economics manager Hx Hypertension No 05/28/24 15:01 Hx Sleep Apnea No 05/28/24 15:01 CPAP BIPAP Do you snore loudly (louder No 05/28/24 15:01 than talking or can be heard Do you often feel tired/ No 05/28/24 15:01 fatigued/ sleepy during daytime? Has anyone observed you stop No 05/28/24 15:01 breathing during sleep? STOP Results Negative 05/28/24 15:01 QUESTION #5 FULL TEXT : Do you snore loudly (louder than talking or can be heard through closed doors)? 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 Specify any problems Hx of Preganancy in last 3 No 05/28/24 15:01 Months Nurse Filling Out Transfusion VCHRISTIN 05/28/24 15:01 & Questions: Date: 05/28/24 05/28/24 15:01 Time: 15:03 05/28/24 15:01 Patient unable to answer at this time (ie. confused, unrespo /Reproduction History /Reproductive History - healthcare economics manager: /Reproductive Hx- healthcare economics manager Hx Now No 05/28/24 15:01 Gestational Age (in weeks): EDC: Hx Hx Para Hx Section SAB No 05/28/24 15:01 Active Medications Active Medications: Current Medications Generic Name Dose Route Start Last Admin Trade Name Freq PRN Reason Stop Dose Admin Lactated Ringer's 1,000 mls @ 15 mls/hr 05/30/24 08:00 05/30/24 08:27 IV 15 mls/hr .Q48H EDI Administration PFSH Medical History Depression Injury of head and neck Fibromyalgia History of ulceration PONV (postoperative nausea and vomiting) Hoarseness History of echocardiogram Wears glasses Wears dentures Anxiety Alcohol use Arthritis Low iron Easy bruising Restless legs Back pain Migraine headache Seizures Difficulty swallowing History of hiatal hernia History of IBS Gastric reflux Former smoker Asthma Shortness of breath on exertion Leg cramps History of pain when walking History of edema History of stress test Cardiology follow-up encounter Hx of cardiac murmur Hx of fracture of arm Home Medications ?Medication ?Instructions ?Recorded ?Last Taken ?Type albuterol sulfate 90 mcg/actuation 2 puff inhalation TID PRN Sob &/Or 03/02/16 05/30/24 07:30 History aerosol inhaler (ProAir HFA) Wheezing meloxicam 7.5 mg tablet 15 mg PO DAILY 03/02/16 Unknown History pseudoephedrine HCl 30 mg tablet 60 mg PO DAILY PRN Allergies 03/02/16 Unknown History (Sudafed) budesonide-formoterol HFA 160 1 inh inhalation BID 02/01/22 Unknown History mcg-4.5 mcg/actuation aerosol inhaler (Symbicort) fremanezumab-vfrm 225 mg/1.5 mL 225 mg subcut QMONTH 02/01/22 Unknown History subcutaneous syringe (Ajovy Syringe) methocarbamol 750 mg tablet 750 mg PO Q8H 02/01/22 Unknown History venlafaxine 150 mg 150 mg PO QHS 02/01/22 Unknown History capsule,extended release 24 hr (Effexor XR) hydroxyzine HCl 10 mg tablet 25 mg PO BID PRN Anxiety 10/29/22 Unknown History sumatriptan succinate 25 mg tablet See Rx Instructions PO .COMPLEX 10/29/22 Unknown History amitriptyline 25 mg tablet 50 mg PO QHS 01/28/23 Unknown History pantoprazole 40 mg tablet,delayed See Rx Instructions .Route 10/03/23 Unknown Rx release .COMPLEX #60 tabs linaclotide 290 mcg capsule 290 mcg PO DAILY #30 caps 03/05/24 Unknown Rx (Linzess) aripiprazole 5 mg tablet 5 mg PO DAILY 05/14/24 Unknown History buspirone 15 mg tablet 15 mg PO BID 05/14/24 Unknown History epinephrine 0.3 mg/0.3 mL 0.3 mg IM UD PRN anaphylaxis 05/28/24 Unknown History injection, auto-injector fluticasone propionate 50 1 spray intranasal BID 05/28/24 Unknown History mcg/actuation nasal spray,suspension loratadine 10 mg tablet 10 mg PO DAILY 05/28/24 Unknown History montelukast 10 mg tablet 10 mg PO DAILY 05/28/24 Unknown History Allergy/AdvReac Type Severity Reaction Status Date / Time egg (eggs) Allergy Severe PT UNSURE Verified 05/30/24 08:23 OF REACTION milk Allergy Severe PT UNSURE Verified 05/30/24 08:23 OF REACTION topiramate Allergy Severe PT UNSURE Verified 05/30/24 08:23 OF REACTION walnut Allergy Severe Anaphylaxis Verified 05/30/24 08:23 Surgical History Hx of Achilles tendon repair History of tubal ligation History of esophagogastroduodenoscopy (EGD) History of cardiac catheterization Hx of tonsillectomy Hx of foot surgery History of carpal tunnel surgery of right wrist History of carpal tunnel surgery of left wrist History of laparoscopic cholecystectomy History of hysteroscopy Social History Smoking Status: Former smoker Review of Systems (Anesthesia) ROS Narrative System reviewed and no additional complaints, except as documented.
--- NOTE | 2024-05-30 08:49 | PCM.HP.BLA ---
History and Physical Date of Admission: 05/30/24 LOVE SY, is a 53 F who presents to the office today for follow up. EGD 4.. Esophageal mucosal changes secondary to established short-segment Yanez's disease. Biopsied. Small hiatal hernia. Normal second portion of the duodenum. OV 7.15.24 pt reports that she had surgery on her leg about a month ago and had to stop her Linzess, so she is currently having a bm once or twice a week; reports occasional blood when she wipes. Pt reports that when she was taking the linzess she would have a loose bm every day or every other day. Pt reports increased HB and does not feel that pantoprazole is helpful for her anymore. ROS Const Constitutional: Positive for headache(s), weakness and weight change (weight gain); No fatigue or fever(s) ENT ENT: Positive for headache(s); No difficulty swallowing Cardio Cardiology: Positive for leg pain with exertion Gastro GI: Positive for bloating, change in bowel habits, constipation, heartburn and excessive flatus; No abdominal pain, belching, change in stool character, coffee ground emesis, cramping, diarrhea, difficulty swallowing, feeling full early, incontinent of stools, Vomiting blood/hematemesis, Blood in stool, loose stools, Black,tarry stools, nausea/dyspepsia, pain with swallowing, vomiting or other Musc Musculoskeletal: Positive for joint pain, back pain, joint swelling, muscle cramps, muscle weakness, numbness, stiffness, tingling, Arthritis, sciatica, restless legs, leg pain at night and leg pain with exertion Skin Skin: Positive for dry skin; No yellowing of the eye or itchy eyes Neuro Neurology: Positive for weakness, headache(s), numbness, tingling and restless legs Psych Psychiatric: Positive for anxiety and Positive for depression Endo Endocrine: Positive for weight change (weight gain); No fatigue Aller/Imm Allergy/Immunologic: No itchy eyes Maco/Lymp Hematologic/Lymphatic: Positive for easy bruising; No easy bleeding Exam Const General: cooperative and comfortable Nutritional Appearance: obese Orientation: alert, awake and oriented x3 Assessment and Plan Assessment and Plan (1) Yanez's esophagus: Status: Chronic Plan: Negative for dysplasia. We reviewed EGD findings. Dr Villa recommends repeat EGD in one yr. Continue pantoprazole 40 mg BID. Her reflux should be better controlled if constipation is controlled. Change from Linzess to Amitiza 24 mcg BID. (2) GERD (gastroesophageal reflux disease): Status: Chronic Plan: Findings: There were esophageal mucosal changes secondary to established short-segment Yanez's disease present in the lower third of the esophagus. The maximum longitudinal extent of these mucosal changes was 3 cm in length. Mucosa was biopsied with a cold forceps for histology in a targeted manner at intervals of 1 cm in the lower third of the esophagus. One specimen bottle was sent to pathology. Verification of patient identification for the specimen was done. Estimated blood loss was minimal. A small hiatal hernia was present. No other significant abnormalities were identified in a careful examination of the stomach. The second portion of the duodenum was normal. Impression: - Esophageal mucosal changes secondary to established short-segment Yanez's disease. Biopsied. - Small hiatal hernia. - Normal second portion of the duodenum. Recommendation: . - Resume previous diet. - Continue present medications. - Await pathology results. - Repeat upper endoscopy in 1 year for surveillance. (3) Constipation: Status: Chronic Plan: as above I have examined the patient and the H&P has been reviewed. There are no clinical changes since date of exam.
--- NOTE | 2024-05-30 09:33 | OP.CCLET_ITS ---
05/30/2024 No Primary Care Physician Re : Upper GI endoscopy procedure for Anette Ruvalcaba Dear Care Physician This procedure was performed on Thursday, May 30, 2024. My impressions and recommendations are as follows: Impressions : - Esophageal mucosal changes secondary to established short-segment Yanez's disease. Biopsied. - Small hiatal hernia. - A few gastric polyps. - No gross lesions in the first portion of the duodenum. Recommendations : - Discharge patient to home. - Resume previous diet. - Continue present medications. - Await pathology results. - Repeat upper endoscopy in 1 year for surveillance. My findings are described in the full procedure note, which is enclosed. If I can be of further assistance, please feel free to contact me at . Sincerely, Ean Villa, 05/30/2024 9:33:18 AM This report has been signed electronically.
--- NOTE | 2024-05-30 09:33 | OP.EGD_ITS ---
Patient Name: Anette Ruvalcaba Procedure Date: 05/30/2024 9:14 AM Date of : 1970 Age: 53 Procedure: Upper GI endoscopy Indications: Follow-up of Yanez's esophagus Providers: Ean Villa DO Medicines: Monitored Anesthesia Care Patient Profile: This is a 53 year old female. Refer to note in patient chart for documentation of history and physical. Patient has symptoms of chronic heartburn. Complications: No immediate complications. Procedure: Pre-Anesthesia Assessment: - Prior to the procedure, a History and Physical was performed, and patient medications and allergies were reviewed. The patient is competent. The risks and benefits of the procedure and the sedation options and risks were discussed with the patient. All questions were answered and informed consent was obtained. Patient identification and proposed procedure were verified by the physician. Mental Status Examination: alert and oriented. Airway Examination: normal oropharyngeal airway and neck mobility. Respiratory Examination: clear to auscultation. CV Examination: normal. Prophylactic Antibiotics: The patient does not require prophylactic antibiotics. Prior Anticoagulants: The patient has taken no anticoagulant or antiplatelet agents. After reviewing the risks and benefits, the patient was deemed in satisfactory condition to undergo the procedure. The anesthesia plan was to use monitored anesthesia care (MAC). Immediately prior to administration of medications, the patient was re-assessed for adequacy to receive sedatives. The heart rate, respiratory rate, oxygen saturations, blood pressure, adequacy of pulmonary ventilation, and response to care were monitored throughout the procedure. The physical status of the patient was re-assessed after the procedure. After obtaining informed consent, the endoscope was passed under direct vision. Throughout the procedure, the patient's blood pressure, pulse, and oxygen saturations were monitored continuously. The Endoscope was introduced through the mouth, and advanced to the second part of duodenum. The upper GI endoscopy was accomplished without difficulty. The patient tolerated the procedure well. Scope In: 9:24:55 AM Scope Out: 9:28:33 AM Total Procedure Duration Time 0 hours 3 minutes 38 seconds Findings: There were esophageal mucosal changes secondary to established short-segment Yanez's disease present in the lower third of the esophagus. The maximum longitudinal extent of these mucosal changes was 3 cm in length. Mucosa was biopsied with a cold forceps for histology in a targeted manner at intervals of 1 cm in the lower third of the esophagus. One specimen bottle was sent to pathology. Verification of patient identification for the specimen was done. Estimated blood loss was minimal. A small hiatal hernia was present. A few small hyperplastic polyps with no stigmata of recent bleeding were found in the gastric body. No gross lesions were noted in the first portion of the duodenum. Impression: - Esophageal mucosal changes secondary to established short-segment Yanez's disease. Biopsied. - Small hiatal hernia. - A few gastric polyps. - No gross lesions in the first portion of the duodenum. Recommendation: - Discharge patient to home. - Resume previous diet. - Continue present medications. - Await pathology results. - Repeat upper endoscopy in 1 year for surveillance. Procedure Code(s): --- Professional --- 78762, Esophagogastroduodenoscopy, flexible, transoral; with biopsy, single or multiple CPT copyright 2021 [employer]. All rights reserved. The codes documented in this report are preliminary and upon orthopedic nurse practitioner review may be revised to meet current compliance requirements. Ean Villa DO 05/30/2024 9:33:18 AM This report has been signed electronically. Number of Addenda: 0 Note Initiated On: 05/30/2024 9:14 AM
--- NOTE | 2024-05-30 09:36 | PCM.POST.ANE ---
Anesthesia: Postop Eval I Current Vital Signs Temperature: 97.1 F Pulse Rate: 16 Blood Pressure: 130/75 Respiratory Rate: 16 Pulse Ox: 99 Oxygen Delivery Method: Room Air Assessment Airway patent: Yes Spontaneous unlabored respirations: Yes Mental status: Asleep nausea: No Vomiting: No Anesthesia Complication: No Fluid Hydration Crystalloid volume administer (ml): 400 Total IV fluid infused: 400 Progress Note Anesthesia document: Postop Eval 1 completed: Yes
--- NOTE | 2024-05-30 11:42 | PCM.POSTANE2 ---
Anesthesia Postop Eval I Sum Postop Eval Completion status Anesthesia document: Postop Eval 1 completed: Yes Anesthesia Postop Eval I Summary Anesthesia Postop Eval I Summary: Anesthesia Postop Eval I: Assessment Summary Airway patent Yes 05/30/24 09:37 [email or web address] Spontaneous unlabored Yes 05/30/24 09:37 [email or web address] respirations Mental status Asleep 05/30/24 09:37 [email or web address] nausea No 05/30/24 09:37 [email or web address] Vomiting No 05/30/24 09:37 [email or web address] Anesthesia Postop Eval I: Fluid Summary Crystalloid volume administer 400 05/30/24 09:37 [email or web address] (ml) Colloids volume administered ( ml) Blood Product volume administered (ml) Total IV fluid infused 400 05/30/24 09:37 [email or web address] Anesthesia Postop Eval I: Summary Notes Anesthesia Complication No 05/30/24 09:37 [email or web address] Anesthesia Complication Comment: Post-operative progress note Anesthesia: Postop Eval II Evaluation Mental status: Awake Pain Level: 0 nausea: No Vomiting: No
== END 2024-05-30 10:33 | disposition home or self-care (01) ==
LOC: EN 07:55 → AC 07:57
PROVIDERS: Visit Provider Internal Medicine Gastroenterology
PROC: 0DJ08ZZ Inspection of Upper Intestinal Tract, Via Natural or Artificial Opening Endoscopic (ICD-10-PCS; CPT 43235; principal; 2024-05-30 08:55)
DX: K44.9 Diaphragmatic hernia without obstruction or gangrene (principal); K22.70 Barrett's esophagus without dysplasia; K31.7 Polyp of stomach and duodenum; K21.9 Gastro-esophageal reflux disease without esophagitis; F41.9 Anxiety disorder, unspecified; J45.909 Unspecified asthma, uncomplicated; F32.A Depression, unspecified; Z79.51 Long term (current) use of inhaled steroids; Z79.899 Other long term (current) drug therapy
CPT/HCPCS: 43239; 88305; 88312; J7120; J2405

== ENCOUNTER → 2024-06-25 | Outpatient (CLI) | payer MEDICAID, SELFPAY ==
--- NOTE | 2024-06-25 12:26 | NM_ITS ---
CLINICAL: 53-year-old female with history of gastroesophageal reflux disease. SEMI-SOLID PHASE 99m Tc SULFUR COLLOID GASTRIC EMPTYING STUDY COMPARISON: None available FINDINGS: The patient was administered 1.1 mCi of 99m Tc sulfur colloid mixed with oatmeal and consumed per os. Image acquisitions in the anterior-posterior projections were obtained for 60 minutes. There is prompt visualization of the stomach. There is no gastroesophageal reflux identified. The T ? linear fit was calculated to be 355.85 minutes, (Normal: 12-56 minutes). NM/Gastric Emptying Study IMPRESSION: 1. ABNORMAL 99m Tc sulfur colloid semi-solid phase (oatmeal) gastric emptying imaging examination. A. There is delayed semi-solid phase gastric emptying compared to normal controls with maintained first order kinetics throughout all components of the examination. (Neli et al, J Nucl Med Tech 38: 186, 2010). Electronically Signed: Sergey Saavedra DO at 9:48 EDT ,
== END | disposition home or self-care (01) ==
LOC: NM 12:26
PROVIDERS: PCP Internal Medicine; Referring Provider Internal Medicine Gastroenterology; Visit Provider Internal Medicine Gastroenterology
DX: K21.9 Gastro-esophageal reflux disease without esophagitis (principal); K59.00 Constipation, unspecified
CPT/HCPCS: 78264; A9541

== ENCOUNTER → 2024-07-13 | Outpatient (CLI) | payer MEDICAID, SELFPAY ==
--- NOTE | 2024-07-13 07:34 | NM_ITS ---
CLINICAL: 53-year-old female with history of presenting gastroparesis. SOLID PHASE 99m Tc SULFUR COLLOID GASTRIC EMPTYING STUDY COMPARISON: Semisolid phase gastric emptying study 06/25/2024 FINDINGS: The patient was administered 1.1 mCi of 99m Tc sulfur colloid mixed with egg and consumed per os. Image acquisitions in the anterior-posterior projections were obtained for 240 minutes following meal consumption. There is prompt visualization of the stomach. There is no gastroesophageal reflux identified. First order kinetics are maintained throughout the duration of the acquisitions. The T ? raw data emptying was calculated to be 190.26 minutes, (Normal 65-110 minutes). 67.0 % emptying and 33.0 % retention are defined at 4 hours post meal ingestion. NM/Gastric Emptying Study - 4 HR IMPRESSION: 1. ABNORMAL 99m Tc sulfur colloid solid phase gastric emptying imaging examination. A. There is abnormal solid phase gastric emptying compared to normal controls with maintained first order kinetics throughout all components of the examination. (Margarito et al, Gastroenterology 77: 75, 1979 Maribel et al, Semin Nucl Med 12: 116, 1981 Hugh et al, SNM Procedure Guidelines Adult Solid Meal Gastric Emptying Study 3.0 [email or web address]). B. Greater than 10% retention of the initial gastric contents at 4 hours post dose is consistent with abnormal solid phase gastric emptying which correlates with the results of the T ? emptying calculation. (Spike et al, J Nucl Med 48: 568, 2007). Electronically Signed: Sergey Saavedra DO at 17:04 EDT ,
== END | disposition home or self-care (01) ==
LOC: NM 07:34
PROVIDERS: PCP Internal Medicine; Referring Provider Internal Medicine Gastroenterology; Visit Provider Internal Medicine Gastroenterology
DX: K31.84 Gastroparesis (principal)
CPT/HCPCS: 78264; A9541